=== PATIENT | male | born 1980 | race Caucasian/White ===

== ENCOUNTER 2017-02-03 14:48 | Emergency (ER) | payer OTHER ==
[2017-02-03 16:41] VITALS: BP 138/79
--- NOTE | 2017-02-03 16:48 | UC ---
Skin Complaint HPI - HPI Summary HPI Summary: one week history of groin rash, initially moist. Concerned because of persistence, with a past history of hospital treatment of a cellulitis in the perineal area. Reviewed record: last year was treated with cephalexin for groin cellulitis, in 2014 had fluconazole. No fever, no pain. 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 Not diabetic. - History of Current Complaint Chief Complaint: UCRash Time Seen by Provider: 02/03/17 16:40 Stated Complaint: SKIN COMPLAINT Hx Obtained From: Patient Onset/Duration: Gradual Onset, Lasting Days - 7 Timing: Constant Onset Severity: Moderate Current Severity: Mild Location: Discrete - both groins, right > left. Aggravating: Clothing, Wet Conditions Alleviating: Nothing Associated Signs & Symptoms: Positive: Negative - Allergy/Home Medications Allergies/Adverse Reactions: Allergies Allergy/AdvReac Type Severity Reaction Status Date / Time Penicillins Allergy Severe Hives Verified 02/03/17 16:20 Bee Venom Allergy Swelling Verified 02/03/17 16:20 Morphine Allergy Swelling Verified 02/03/17 16:20 Sulfa Antibiotics Allergy Difficulty Verified 02/03/17 16:20 Breathing Home Medications: Home Medications [id number] [Excedrin Migraine] 1 tab PO Q6H PRN 02/03/17 [ History Confirmed 02/03/17] Naproxen TAB* [Naprosyn 250 mg TAB*] 250 mg PO Q8H PRN 02/03/17 [History Confirmed 02/03/17] Review of Systems Constitutional: Other - about to be screened for Factor V Leiden mutation due to FH of thromboembolic disease. Skin: Rash - in groin, discussed ways to stay dry in the [place] area. Eyes: Negative ENT: Negative Respiratory: Negative Cardiovascular: Other Gastrointestinal: Negative Genitourinary: Negative Motor: Negative Neurovascular: Negative Musculoskeletal: Arthralgia - occasional low back pain treated with naproxen Neurological: Negative Psychological: Anxious - worried about recurrent infection. All Other Systems Reviewed And Are Negative: Yes PMH/Surg Hx/FS Hx/Imm Hx - Additional Past Medical History Additional PMH: obese - Surgical History Surgical History: Yes Surgery Procedure, Year, and Place: tonsilectomy. 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 appy - Family History Known Family History: Positive: Hypertension, Diabetes, Other - mother has had blood clots, Factor V Leiden positive. - Social History Occupation: Employed Full-time Alcohol Use: Occasionally Substance Use Type: None Smoking Status (MU): Former Smoker Type: Cigarettes Amount Used/How Often: 2 - 2 1/2 PPD Length of Time of Smoking/Using Tobacco: 22 Years Have You Smoked in the Last Year: Yes When Did the Patient Quit Smoking/Using Tobacco: 2014 - Immunization History Most Recent Influenza Vaccination: Not the Season Physical Exam Triage Information Reviewed: Yes Appearance: Well-Appearing, Obese Vital Signs: Initial Vital Signs Temp 97.4 F 02/03/17 16:21 Pulse 76 02/03/17 16:21 Resp 16 02/03/17 16:21 BP 138/79 02/03/17 16:21 Pulse Ox 99 02/03/17 16:21 Vital Signs Reviewed: Yes ENT Exam: Normal Dental: Positive: Other: - upper denture Respiratory Exam: Normal Respiratory: Positive: Lungs clear, Normal breath sounds Cardiovascular: Positive: RRR, No Murmur Abdomen Description: Positive: Nontender, Soft Musculoskeletal Exam: Normal Neurological Exam: Normal Psychological Exam: Normal Skin: Positive: rashes - right groin with mild erythema, with peeling skin consistent with candidal infection. no adenopathy, no tenderness. Course/Dx - Course Course Of Treatment: fluconazole and nystatin powder for candidal infection. - Differential Diagnoses - Skin Complaint Differential Diagnoses: Cellulitis, Contact Dermatitis, Other - Breanna - Diagnoses Provider Diagnoses: intertrigo of groin. Discharge - Discharge Plan Condition: Stable Disposition: HOME Prescriptions: Fluconazole 100 MG TAB* [Diflucan 100 MG TAB*] 100 mg PO DAILY #5 tab Nystatin TOP POWDER* 1 applic TOPICAL TID #1 btl Patient Education Materials: Skin Yeast Infection (ED) Additional Instructions: Apply nystatin powder three times daily for the next 5 to 7 days, then use as needed to help to prevent recurrence of yeast infection. Use oral fluconazole 100 mg once daily for 5 days.
== END 2017-02-03 17:10 | disposition home or self-care (01) ==
LOC: UCCORT 14:48
DX: B37.2 Candidiasis of skin and nail (principal); E66.9 Obesity, unspecified; Z87.891 Personal history of nicotine dependence; Z88.5 Allergy status to narcotic agent; Z88.0 Allergy status to penicillin; Z88.2 Allergy status to sulfonamides
CPT/HCPCS: 99212; G0463